=== PATIENT | male | born 1970 | race African-American/Black ===

== ENCOUNTER 2019-10-02 07:35 | Emergency (ER) | payer SELFPAY ==
[2019-10-02 07:42] VITALS: BP 174/123; RESP 17; TEMP 37.1; O2SAT 99; BMI 36.3
--- NOTE | 2019-10-02 07:47 | ED_ITS ---
HPI - Dental/Oral General: Chief complaint: Dental/Oral Stated complaint: dental pain Time Seen by Provider: 10/02/19 07:38 History of Present Illness: HPI Narrative: Patient is a 49-year-old male who comes into the ED with dental pain. Patient states that symptoms started yesterday. Dental pain and facial swelling is on upper right maxillary jaw. He currently rates the pain a 10 out of 10. Denies any fever, chills, eye pain or change in vision. Location: Tooth # (2,3,4) Context: poor dental care Associated symptoms: Reports gum swelling; Denies fever(s) or odynophagia Review of Systems Const: Denies: fever(s), chills or fatigue Eyes: Denies: change in vision or eye discomfort ENMT: Reports: dental pain; Denies: throat pain, odynophagia, nasal discharge or nasal congestion Card: Denies: chest pain, palpitations, edema, swelling of feet/ankles, dyspnea on exertion or orthopnea Resp: Denies: dyspnea, productive cough or non-productive cough GI: Denies: abdominal pain, nausea, vomiting, diarrhea, constipation or hematochezia : Denies: flank pain, difficulty urinating, dysuria or hematuria Musc: Denies: neck pain, back pain or extremity swelling Skin/Breast: Denies: rash or new lesions Neuro: Denies: headache(s), numbness in extremities or weakness in extremities PFSH ED PFSH: Social History Smoking and tobacco status: current every day smoker Physical Exam Const: COMMON NORMALS: patient oriented x3, healthy appearing and alert GENERAL APPEARANCE: cooperative and comfortable HENMT: COMMON NORMALS: normocephalic HEAD & SCALP: normocephalic FACE & SINUS: edema on the right periorbital (lower eyelid) and maxilla and Facial tenderness on exam of face and sinuses on the right maxilla MOUTH: Normal oral and palatal mucosa present TEETH & GINGIVA: Yes caries (Teeth #2,3,4), Yes gingiva abnormal edematous (right side maxillary) and Yes poor dentition THROAT: posterior oropharynx normal and uvula midline Eye: PERIORBITAL: periorbital findings abnormal positive right periorbital swelling (lower lid swelling) Neck/C-Spine: COMMON NORMALS: supple GENERAL: Yes normal visual inspection Resp: COMMON NORMALS: normal respiratory effort, No retractions, No use of accessory muscles and clear to auscultation bilaterally AUSCULTATION: clear to auscultation bilaterally Cardio: COMMON NORMALS: regular rate, regular rhythm, S1 normal heart sound present, S2 normal heart sound present, No gallops present (Cardio), No clicks present (Cardio), No murmurs present (Cardio) and Peripheral pulses 2+ throughout RATE: regular rate RHYTHM: regular rhythm HEART SOUNDS: S1 normal heart sound present and S2 normal heart sound present PERIPHERAL PULSES: Peripheral pulses 2+ throughout GI: COMMON NORMALS: Normal to inspection, nondistended, normoactive bowel sounds present, Soft to palpation, non-tender and no masses PALPATION: Yes Soft to palpation : COMMON NORMALS: Yes no CVA tenderness BLADDER/KIDNEY EXAM: Yes no CVA tenderness Back/Pelvis: COMMON NORMALS: no CVA tenderness Extremity: COMMON NORMALS: normal to inspection Neuro: COMMON NORMALS: patient oriented x3 and moves all extremities SENSORIUM/ORIENTATION: Yes alert Skin: COMMON NORMALS: no rashes or lesions noted GENERAL SKIN EXAM: no rashes or lesions noted and dry skin Course Vital Signs: Vital signs: Vital Signs Temperature 98.8 F 10/02/19 07:42 Respiratory Rate 17 10/02/19 07:42 Blood Pressure 174/123 10/02/19 07:42 Pulse Oximetry 99 10/02/19 07:42 MDM - Dental/Oral MDM Narrative: Medical decision making narrative: Patient is a 49-year-old male who comes to the ED with dental pain starting yesterday. Physical exam shows extensive dental caries throughout mouth and some gingival edema in right maxillary jaw. Patient also has some right maxillary facial swelling that also involves right lower eyelid. Denies any change in vision or eye pain. Patient was given dose of clindamycin while here in the ED and sent home with a prescription for clindamycin. He was also given a hydrocodone to help with pain while here in the ED. He was discharged and told to take full course of antibiotics and to take ibuprofen and/or Tylenol to help with pain. He is going to call dentist to set up an appointment for evaluation in the next 7 days. Patient understood and agreed with plan. Discharge Plan Discharge Patient Disposition: Home, Self-Care Clinical Impression: Pain due to dental caries Condition: Stable Prescriptions: New clindamycin HCl 150 mg capsule 300 mg PO QID 7 Days Qty: 56 RF: 0 Discharge Orders: Discharge Order (Routine); Ordered 10/02/19 Ordered By: Mitesh Munoz Discharge Diet: Regular Discharge Activity: Resume usual activity Patient Instructions: Dental Caries (Cavities) Activity Restrictions/Additional Instructions: Take full course of antibiotic as prescribed. Take ibuprofen and or Tylenol to help with pain. Call dentist office and set up an appointment for evaluation in the next 7 to 10 days. 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
[2019-10-02] MEDS: clindamycin 150 mg Capsule 300 MG PO (07:55)
[2019-10-02] MEDS: HYDROcodone-acetaminophen 7.5-325 mg Tablet 1 TAB PO (07:55)
[2019-10-02 07:59] VITALS: BP 166/125; PULSE 100; RESP 18; O2SAT 98
== END 2019-10-02 07:59 | disposition home or self-care (01) ==
PROVIDERS: Emergency Provider Physician Assistant
DX: K02.9 Dental caries, unspecified (principal); F17.210 Nicotine dependence, cigarettes, uncomplicated
CPT/HCPCS: 12345; 99281; 99283